=== PATIENT | male | born 1980 | race Caucasian/White ===

== ENCOUNTER 2017-12-31 00:39 | Emergency (ER) | payer BC ==
[~2017-12-31] VITALS: Ht 180.3 cm; Wt 49.6 kg
[2017-12-31 00:44] VITALS: TEMP 36.9; Ht 180.3 cm; Wt 49.6 kg
--- NOTE | 2017-12-31 01:35 | EMERGENCY ROOM VISIT NOTE ---
History Report prepared by Santino: Camden Ngo Under the Supervision of: Dr. Alexia Pruitt D.O. First contact with patient: 01:06 Chief Complaint: ELBOW PAIN/INJURY Stated Complaint: RT ELBOW PAIN History of Present Illness The patient is a 37 year old male who presents to the Emergency Room with complaints of constant right elbow pain beginning tonight. The patient states that he slipped on a patch of ice this evening and fell on his right elbow. He notes that he did not hit his head and that he has no other pain. He denies any shoulder pain, buttock pain, wrist pain, and back pain. He reports that he has never injured his elbow before. He rates his pain a /10. Source of History: patient Onset: tonight Position: other (right elbow) Symptom Intensity: 10 Timing: constant Associated Symptoms: No headache, No back pain Note: He denies any shoulder pain, buttock pain, and wrist pain. Review of Systems Patient denies injury to any other part of his body following the fall. Past Medical & Surgical Medical Problems: (1) No chronic problems Family History Cancer Heart disease Social History Smoking Status: Current Every Day Smoker Alcohol Use: occasionally Marital Status: Housing Status: lives with family Occupation Status: employed Current/Historical Medications No Active Prescriptions or Reported Meds Allergies Coded Allergies: Penicillins (Verified Allergy, Unknown, rash, 02/08/16) Physical Exam Vital Signs Date Time Temp Pulse Resp B/P (MAP) Pulse Ox O2 Delivery O2 Flow Rate FiO2 12/31/17 02:25 71 16 117/65 96 12/31/17 00:44 36.9 79 16 113/73 96 Room Air Physical Exam Right Elbow: Small contusion over the elbow, no edema, no obvious joint effusion , no pain over lateral or medial epicondyles, limited ROM because of pain, good PMS in the hand. Medical Decision & Procedures ER Provider Diagnostic Interpretation: Radiology results as stated below per my review and interpretation: ELBOW X-RAY: No obvious fracture or joint effusion. ED Course 0128: Past medical records reviewed. The patient was evaluated in room B11. A complete history and physical exam was performed. The patient went for x-rays of the right elbow as described above. 0213: I reevaluated and updated the patient. 0226: Upon reevaluation, the patient is stable. I discussed findings and results with him. He verbalized agreement of the treatment plan. The patient was discharged home. Medical Decision The patient is a 37 year old male who presents to the Emergency Room with complaints of constant right elbow pain beginning tonight. Differential diagnoses include: elbow contusion, elbow fracture, and elbow strain. This is a 37-year-old male patient who fell on his right elbow while walking on ice this evening. X-ray shows no convincing evidence of acute fracture. Upon repeat exam, the patient was able to put the elbow through for range of motion with only slight pain. He was instructed to ice the elbow and use NSAIDs or Tylenol for pain. If the symptoms persist, he should follow-up with his PCP. Blood Pressure Screening Patient's blood pressure: Normal blood pressure Blood pressure disposition: Did not require urgent referral Impression Primary Impression: Contusion of right elbow Scribe Attestation The scribe's documentation has been prepared under my direction and personally reviewed by me in its entirety. I confirm that the note above accurately reflects all work, treatment, procedures, and medical decision making performed by me. Departure Information Dispostion Home / Self-Care Prescriptions No Active Prescriptions or Reported Meds Referrals Nate Melgar M.D. (MEDICAL) (PCP) Forms HOME CARE DOCUMENTATION FORM, IMPORTANT VISIT INFORMATION Patient Instructions My [facility] Additional Instructions Rest Take motrin or tylenol for pain Problem Qualifiers Primary Impression: Contusion of right elbow Encounter type: initial encounter Qualified Codes: S50.01XA - Contusion of right elbow, initial encounter
[2017-12-31 02:25] VITALS: BP 117/65; PULSE 71; O2SAT 96
--- NOTE | 2017-12-31 06:43 | DIAGNOSTIC IMAGING REPORT ---
R ELBOW MIN 3 VIEWS ROUTINE HISTORY: 37 years-old Male eval for right elbow fracture acute right elbow pain status post fall COMPARISON: None available TECHNIQUE: 3 views of the right elbow FINDINGS: No acute fracture, dislocation or significant degenerative changes. No large joint effusion or opaque foreign body. 8 mm supracondylar spur is noted projecting anteromedially. IMPRESSION: 1. No acute fracture or dislocation. 2. 8 mm supracondylar spur of the distal humerus. The above report was generated using voice recognition software. It may contain grammatical, syntax or spelling errors. Electronically signed by: Clint Alvarado M.D. 12/31/2017 6:42 AM Dictated Date/Time: 12/31/2017 6:40 AM
== END 2017-12-31 02:26 | disposition home or self-care (01) ==
LOC: C.EDB 00:41
DX: S50.01XA Contusion of right elbow, initial encounter (principal); W00.0XXA Fall on same level due to ice and snow, initial encounter; Y92.9 Unspecified place or not applicable; Z80.9 Family history of malignant neoplasm, unspecified; Z82.49 Family history of ischemic heart disease and other diseases of the circulatory system; F17.210 Nicotine dependence, cigarettes, uncomplicated; Z88.0 Allergy status to penicillin

== ENCOUNTER 2018-03-30 01:32 | Emergency (ER) | payer BC ==
[~2018-03-30] VITALS: Ht 185.4 cm; Wt 49.1 kg
[2018-03-30 01:34] VITALS: TEMP 36.8; Ht 185.4 cm; Wt 49.1 kg
[2018-03-30] MEDS ORDERED: ALBUT/IPRATROP 3MG/0.5MG NEB 3 ML VIAL INH STA (01:49)
--- NOTE | 2018-03-30 02:10 | EMERGENCY ROOM VISIT NOTE ---
History Report prepared by Santino: Edelmira Cardenas Under the Supervision of: Dr. Alexia Pruitt D.O. First contact with patient: 01:40 Chief Complaint: COUGH Stated Complaint: COUGHING,TIGHTNESS IN CHEST,SOB,VOMITING History of Present Illness The patient is a 37 year old male who presents to the Emergency Room with complaints of constant cough for 2 weeks. The patient states that the cough seems to get worse at night and he cannot sleep because of it. He states that gets one hour of sleep a night because of it. He reports that it is worse when he lies down. He notes that he has had bronchitis and pneumonia in the past. The patient states that he quit smoking 5 hours ago. The patient complains of chest tightness, shortness of breath, and vomiting. Source of History: patient Onset: 2 weeks ago Position: other (global) Quality: other (cough) Timing: constant Modifying Factors (Worsening): other (lying down) Associated Symptoms: + chest pain (tightness), + SOB, + vomiting Note: The patient complains of not being able to sleep. Review of Systems See HPI for pertinent positives & negatives. A total of 10 systems reviewed and were otherwise negative. Past Medical & Surgical Medical Problems: (1) History of pneumonia (2) Hx of acute bronchitis (3) No chronic problems Family History Cancer Heart disease Social History Smoking Status: Current Every Day Smoker Alcohol Use: occasionally Marital Status: Housing Status: lives with family Occupation Status: employed Current/Historical Medications Scheduled Albuterol Hfa (Ventolin Hfa), 2 PUFFS INH Q4 Azithromycin (Zithromax), 250 MG PO DAILY Allergies Coded Allergies: Penicillins (Verified Allergy, Unknown, rash, 02/08/16) Physical Exam Vital Signs Date Time Temp Pulse Resp B/P (MAP) Pulse Ox O2 Delivery O2 Flow Rate FiO2 03/30/18 03:18 89 17 114/67 97 03/30/18 01:56 Room Air 03/30/18 01:34 36.8 93 18 119/64 94 Room Air Physical Exam HEENT: Head - normocephalic and atraumatic Pupils are equal, round, and reactive to light. Extraocular eye muscles are intact, and sclera are anicteric. Nose - moist nasal mucosa without discharge. Mouth - moist buccal mucosa. Oropharynx is nonerythematous and there is no tonsillar exudate or edema noted. Neck: Supple; no JVD, nuchal rigidity, cervical lymphadenopathy. Heart: Regular rate and rhythm. There is a normal S1 and S2 with no murmurs, clicks, or gallops appreciated. Lungs: Expiratory wheezing in the upper lung calderon. No rales or rhonchi. Abdomen: Soft, completely nontender, nondistended, with good bowel sounds. There are no palpable pulsatile masses or hepatosplenomegaly. There is no guarding, rigidity, or rebound noted. Extremities: No evidence of cyanosis, clubbing, or edema. There are easily palpable peripheral pulses. Skin: warm and dry with good turgor and no rashes. Medical Decision & Procedures ER Provider Diagnostic Interpretation: Radiology results as stated below per my review and the radiologist's interpretation: CHEST X-RAY: The results were interpreted by me. Left lower lobe pulmonary infiltrate consistent with pneumonia. Medications Administered Medications (Trade) Dose Ordered Sig/Allie Route Start Time Stop Time Status Last Admin Dose Admin Albuterol/ Ipratropium (Duoneb) 3 ml NOW STAT INH 03/30/18 01:49 03/30/18 01:51 DC 03/30/18 01:55 3 ML Azithromycin (Zithromax Tab) 500 mg NOW STAT PO 03/30/18 02:40 03/30/18 02:41 DC 03/30/18 03:01 500 MG Procedure 0149: Ordered Duoneb 3 ml INH. 0240: Ordered Azithromycin 500 mg PO. ED Course 0144: Past medical records reviewed. The patient was evaluated in room B12B. A complete history and physical exam was performed. 0149: Ordered Duoneb 3 ml INH. Patient had a chest x-ray as described above. I felt the patient was more cachectic appearing than he had been previously during my examinations of him. I did compare weight from today's visit to one earlier this year and to one from 2016. It is essentially unchanged. 0240: Ordered Azithromycin 500 mg PO. We spent some more time talking about smoking cessation and the importance of it. 0241: Upon reevaluation, the patient was resting comfortably. I discussed findings and results with him. He verbalized agreement of the treatment plan. The patient was discharged home. Medical Decision The patient is a 37 year old male who presents to the Emergency Room with complaints of constant cough for 2 weeks. Differential diagnoses include bronchitis, pneumonia, URI, COPD. This is a 37-year-old male patient presents to the emergency department with a constant cough for the past 2 weeks. The patient tells me that he quit smoking approximately 5 hours ago. X-rays concerning for left lower lobe infiltrate. The patient will be started on oral antibiotics. He was given an inhaler to use over the next 3 days routinely and then as needed. Asked him to follow-up with Dr. Melgar who is his PCP if the symptoms persist. Medication Reconcilliation Current Medication List: was personally reviewed by me Blood Pressure Screening Patient's blood pressure: Normal blood pressure Blood pressure disposition: Did not require urgent referral Impression Primary Impression: Pneumonia Scribe Attestation The scribe's documentation has been prepared under my direction and personally reviewed by me in its entirety. I confirm that the note above accurately reflects all work, treatment, procedures, and medical decision making performed by me. Departure Information Dispostion Home / Self-Care Prescriptions Albuterol Hfa (VENTOLIN HFA) 200 Puffs/66909 Mcg Aers 2 PUFFS INH Q4, #1 INHALER Prov: Alexia Pruitt D.OJerald 03/30/18 Azithromycin (ZITHROMAX) 250 Mg Tab 250 MG PO DAILY, #4 TAB Prov: Alexia Pruitt D.O. 03/30/18 Referrals Nate Melgar M.D. (MEDICAL) (PCP) Forms HOME CARE DOCUMENTATION FORM, IMPORTANT VISIT INFORMATION Patient Instructions My [facility] [place] [facility] Additional Instructions rest. STOP SMOKING zithromax - daily for next 4 days Follow up with PCP on Use inhaler - 2 puffs every 4 hours over next 3 days then as needed. Problem Qualifiers Primary Impression: Pneumonia Pneumonia type: due to unspecified organism Laterality: left Lung location : lower lobe of lung Qualified Codes: J18.1 - Lobar pneumonia, unspecified organism
[2018-03-30] MEDS ORDERED: AZITHROMYCIN 250 MG TAB PO STA (02:40)
[2018-03-30] MEDS ORDERED: VNTHFA/IN INH (03:10)
[2018-03-30] MEDS ORDERED: AZIT250T PO (03:10)
[2018-03-30 03:18] VITALS: BP 114/67; PULSE 89; O2SAT 97
--- NOTE | 2018-03-30 09:30 | DIAGNOSTIC IMAGING REPORT ---
CHEST 2 VIEWS ROUTINE HISTORY: Cough. eval for pneumonia COMPARISON: None. FINDINGS: No pneumothorax. No pleural effusions. The heart is normal in size. The right lung is clear. Consolidation seen within the base of the left lower lobe. IMPRESSION: Consolidation within the base of the left lower lobe. This is consistent with a pneumonia. Recommend one to 2 month chest x-ray follow-up to ensure resolution. Electronically signed by: Kyree Minaya M.D. 03/30/2018 9:29 AM Dictated Date/Time: 03/30/2018 9:28 AM
== END 2018-03-30 03:18 | disposition home or self-care (01) ==
LOC: C.EDB 01:33
DX: J18.1 Lobar pneumonia, unspecified organism (principal); F17.210 Nicotine dependence, cigarettes, uncomplicated; Z88.0 Allergy status to penicillin